=== PATIENT | female | born 1995 | race Caucasian/White ===

== ENCOUNTER 2018-06-11 21:07 | Emergency (ER) | payer MEDICAID ==
--- NOTE | 2018-06-11 21:28 | EDPHY ---
H & P Stated Complaint: RLQ pain since 1400 Time Seen by Provider: 06/11/18 21:23 HPI/ROS: CHIEF COMPLAINT: Right lower quadrant abdominal pain HISTORY OF PRESENT ILLNESS: 22-year-old female with no history of abdominal surgeries in the ER via private vehicle complaining of acute right lower quadrant abdominal pain since approximately 2:00 p.m. Today. Describes a sharp stabbing pain, intermittent. No nausea or vomiting. Bowel movements normal. No urinary abnormality. No melena or hematochezia. Last oral intake was a 30 p.m. With no sequelae REVIEW OF SYSTEMS: 10 systems reviewed and negative with the exception of the elements mentioned in the history of present illness PAST MEDICAL & SURGICAL HISTORY: Cholecystectomy SOCIAL HISTORY: Nonsmoker PHYSICAL EXAM (Prior to examination, patient consented to physical exam, hands were washed and my usual and customary physical exam procedures followed) 1) GENERAL: Well-developed, well-nourished, alert and oriented. Appears to be in no acute distress. 2) HEAD: Normocephalic, atraumatic 3) HEENT: Pupils equal, round, reactive to light bilaterally. Sclera anicteric. 4) NECK: Full range of motion, no meningeal signs. 5) LUNGS: Clear auscultation bilaterally, no wheezes, no rhonchi, no retractions. 6) HEART: Regular rate and rhythm, no murmur, no heave, no gallop. 7) ABDOMEN: No guarding, tender to palpation right lower quadrant negative Acevedo's, negative Rovsing's, negative peritoneal sign, 8) MUSCULOSKELETAL: Moving all extremities, no focal areas of tenderness, no obvious trauma. No peripheral edema or discoloration. 9) BACK: No CVA tenderness, no midline vertebral tenderness, no fluctuance, no step-off, no obvious trauma, no visual or palpable abnormality. 10) SKIN: No rash, no petechiae. 11) Psychiatric: Patient is oriented X 3, there is no agitation. DIFFERENTIAL DIAGNOSIS: My differential diagnosis includes, but is not limited to, acute appendicitis, acute cholecystitis, bowel obstruction, acute pancreatitis, ovarian torsion, ectopic , gastritis and urinary tract infection. The patient understands that this diagnosis is provisional and can never be 100% accurate. This is a partial list of diagnoses considered. These considerations are based on history, physical exam, past history and reassessment. - Personal History LMP (Females 10-55): 8-14 Days Ago Current Tetanus/Diphtheria Vaccine: Yes Tetanus Vaccine Date: < 10 YEARS - Medical/Surgical History Hx Asthma: No Hx Chronic Respiratory Disease: No Hx Diabetes: No Hx Cardiac Disease: No Hx Renal Disease: No Hx Cirrhosis: No Hx Alcoholism: No Hx HIV/AIDS: No Hx Splenectomy or Spleen Trauma: No Other PMH: Cholecystectomy, asthma (as a child), bronchitis - Social History Smoking Status: Never smoked Constitutional: Initial Vital Signs Temperature (C) 37.1 C 06/11/18 21:11 Heart Rate 79 06/11/18 21:11 Respiratory Rate 18 06/11/18 21:11 Blood Pressure 120/76 06/11/18 21:11 O2 Sat (%) 96 06/11/18 21:11 O2 Delivery Mode Room Air Allergies/Adverse Reactions: EGGS Allergy (Unknown, Uncoded 08/09/16 09:45) flu vaccine Allergy (Unknown, Uncoded 08/09/16 09:45) flu shot Allergy (Uncoded 08/09/16 09:45) uncooked egg Allergy (Uncoded 08/09/16 09:45) Home Medications: Medication Instructions Recorded Cephalexin [Keflex] 500 mg PO TID 7 Days cap 06/11/18 Medical Decision Making - Diagnostics Imaging Results: Imaging Impressions Abdomen Ultrasound 06/11/18 21:31 Impression: 1. Normal-appearing uterus and ovaries. 2. No evidence of dilated appendix in the right lower quadrant, however, the appendix was not positively identified. There is a high suspicion for appendicitis then consider CT imaging as clinically directed. Findings discussed with Boni Dubois PAC at 22:46 hour, 06/11/2018. Pelvic/Renal Ultrasound 06/11/18 21:31 Impression: 1. Normal-appearing uterus and ovaries. 2. No evidence of dilated appendix in the right lower quadrant, however, the appendix was not positively identified. There is a high suspicion for appendicitis then consider CT imaging as clinically directed. Findings discussed with Boni Dubois PAC at 22:46 hour, 06/11/2018. Abdomen CT 06/11/18 22:47 Impression: 1. Normal CT abdomen and pelvis with contrast enhancement. 2. No CT evidence of appendicitis, abscess or bowel obstruction. Findings discussed with Boni Dubois PAC at 23:10 hour, 06/11/2018. Images reviewed myself ED Course/Re-evaluation: 9:30 p.m.: Will obtain diagnostic studies including ultrasonography. Patient remains NPO since 830 p.m.. I saw this patient independently based on established practice protocols. Care of patient under supervision of secondary supervising physician Dr Maria Ines Weaver. 10:48 p.m.: Ultrasound of the abdomen is nondiagnostic for appendicitis, nonvisualized appendix. Recommend CT imaging of the abdomen. Indications risks benefits discussed with patient she consents. 11:12 p.m.: CT negative for acute appendicitis. Patient re-evaluated. Discussed her imaging. She appears well. She does have evidence of urinary tract infection. Urine will be cultured. Started on Keflex. I think the patient can be discharged. Doubt acute surgical abdominal pathology. Usual and customary discharge precautions and instructions provided. - Data Points Laboratory Results: Laboratory Results 06/11/18 21:24 06/11/18 21:24 06/11/18 06/11/18 06/11/18 21:24 21:24 21:24 WBC RBC Hgb Hct MCV MCH MCHC RDW Plt Count MPV Neut % (Auto) Lymph % (Auto) [place] % (Auto) Eos % (Auto) Baso % (Auto) Nucleat RBC Rel Count Absolute Neuts (auto) Absolute Lymphs (auto) Absolute Monos (auto) Absolute Eos (auto) Absolute Basos (auto) Absolute Nucleated RBC Immature Gran % Immature Gran # RBC/WBC/PLT Morphology Platelet Estimate Sodium 136 mEq/L mEq/L (135-145) Potassium 4.3 mEq/L mEq/L (3.3-5.0) Chloride 102 mEq/L mEq/L (97-110) Carbon Dioxide 25 mEq/l mEq/l (22-31) Anion Gap 9 mEq/L mEq/L (8-16) BUN 23 mg/dL mg/dL (7-23) Creatinine 0.7 mg/dL mg/dL (0.6-1.0) Estimated GFR > 60 Glucose 98 mg/dL mg/dL (70-100) Calcium 9.4 mg/dL mg/dL (8.5-10.4) Total Bilirubin 0.2 mg/dL mg/dL (0.1-1.4) Conjugated Bilirubin 0.1 mg/dL mg/dL (0.0-0.5) Unconjugated Bilirubin 0.1 mg/dL mg/dL (0.0-1.1) AST 19 IU/L IU/L (14-46) ALT 27 IU/L IU/L (9-52) Alkaline Phosphatase 90 IU/L IU/L (38-126) Total Protein 6.9 g/dL g/dL (6.3-8.2) Albumin 3.9 g/dL g/dL (3.5-5.0) Lipase 100 IU/L IU/L (23-300) Beta HCG, Qual NEGATIVE Urine Color YELLOW Urine Appearance HAZY Urine pH 5.0 (5.0-7.5) Ur Specific [place] 1.025 (1.002-1.030) Urine Protein NEGATIVE (NEGATIVE) Urine Ketones NEGATIVE (NEGATIVE) Urine Blood NEGATIVE (NEGATIVE) Urine Nitrate NEGATIVE (NEGATIVE) Urine Bilirubin NEGATIVE (NEGATIVE) Urine Urobilinogen NEGATIVE EU EU (0.2-1.0) Ur Leukocyte Esterase 2+ H (NEGATIVE) Urine RBC 3-5 /hpf H /hpf (0-3) Urine WBC 10-15 /hpf H /hpf (0-3) Ur Epithelial Cells 1+ /lpf /lpf (NONE-1+) Urine Bacteria TRACE /hpf H /hpf (NONE SEEN) Urine Glucose NEGATIVE (NEGATIVE) 06/11/18 21:24 WBC 13.08 10^3/uL H 10^3/uL (3.80-9.50) RBC 4.80 10^6/uL 10^6/uL (4.18-5.33) Hgb 13.7 g/dL g/dL (12.6-16.3) Hct 40.9 % % (38.0-47.0) MCV 85.2 fL fL (81.5-99.8) MCH 28.5 pg pg (27.9-34.1) MCHC 33.5 g/dL g/dL (32.4-36.7) RDW 13.2 % % (11.5-15.2) Plt Count 362 10^3/uL 10^3/uL (150-400) MPV 9.6 fL fL (8.7-11.7) Neut % (Auto) 59.0 % % (39.3-74.2) Lymph % (Auto) 30.7 % % (15.0-45.0) [place] % (Auto) 6.3 % % (4.5-13.0) Eos % (Auto) 3.1 % % (0.6-7.6) Baso % (Auto) 0.5 % % (0.3-1.7) Nucleat RBC Rel Count 0.0 % % (0.0-0.2) Absolute Neuts (auto) 7.74 10^3/uL H 10^3/uL (1.70-6.50) Absolute Lymphs (auto) 4.01 10^3/uL H 10^3/uL (1.00-3.00) Absolute Monos (auto) 0.82 10^3/uL H 10^3/uL (0.30-0.80) Absolute Eos (auto) 0.40 10^3/uL 10^3/uL (0.03-0.40) Absolute Basos (auto) 0.06 10^3/uL 10^3/uL (0.02-0.10) Absolute Nucleated RBC 0.00 10^3/uL 10^3/uL (0-0.01) Immature Gran % 0.4 % % (0.0-1.1) Immature Gran # 0.05 10^3/uL 10^3/uL (0.00-0.10) RBC/WBC/PLT Morphology TNP Platelet Estimate ADEQUATE (ADEQ) Sodium Potassium Chloride Carbon Dioxide Anion Gap BUN Creatinine Estimated GFR Glucose Calcium Total Bilirubin Conjugated Bilirubin Unconjugated Bilirubin AST ALT Alkaline Phosphatase Total Protein Albumin Lipase Beta HCG, Qual Urine Color Urine Appearance Urine pH Ur Specific [place] Urine Protein Urine Ketones Urine Blood Urine Nitrate Urine Bilirubin Urine Urobilinogen Ur Leukocyte Esterase Urine RBC Urine WBC Ur Epithelial Cells Urine Bacteria Urine Glucose Departure - Departure Disposition: Home, Routine, Self-Care Clinical Impression: Urinary tract infection Qualifiers: Urinary tract infection type: acute cystitis Hematuria presence: with hematuria Qualified Code(s): N30.01 - Acute cystitis with hematuria Condition: Good Instructions: Urinary Tract Infection in Women (ED), Cephalexin (By mouth) Additional Instructions: Return to the ER immediately if you experience fevers/chills, flu like symptoms , inability to tolerate oral intake, nausea or vomiting, or any other symptoms that concern you. Referrals: Trice Murphy [employer] DEPARTMENT MANAGER [Primary Care Provider] - 1-2 days without fail Prescriptions: Cephalexin [Keflex] 500 mg PO TID 7 Days cap
[2018-06-11 21:36] LABS: PLATELET COUNT 362 10^3/uL (150-400)
[2018-06-11] MEDS ORDERED: IOPAMIDOL (ISOVUE-300) 100 ML BTL ONE (22:49)
[2018-06-11] MEDS ORDERED: CEPHALEXIN 500MG PREPACK#4 BTL TAKEHOME ONE (23:13)
[2018-06-11 23:24] VITALS: BP 122/78
== END 2018-06-11 23:29 | disposition home or self-care (01) ==
DX: N39.0 Urinary tract infection, site not specified (principal)
CPT/HCPCS: Q9967

== ENCOUNTER 2019-03-06 04:37 | Emergency (ER) | payer MEDICAID | END 2019-03-06 06:41 | disposition home or self-care (01) ==